=== PATIENT | male | born 1995 | race African-American/Black ===

== ENCOUNTER 2016-10-03 10:51 | Emergency (ER) | payer SELFPAY ==
[~2016-10-03] VITALS: Ht 172.7 cm; Wt 70.0 kg
[2016-10-03 10:52] VITALS: BP 125/89; PULSE 72; RESP 20; TEMP 97.8; O2SAT 99
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
[2016-10-03] MEDS ORDERED: CEPH-460 PO (12:06)
[2016-10-03] MEDS ORDERED: MUPI2%T TOPICAL (12:06)
[2016-10-03] MEDS ORDERED: DICL75TA PO (12:10)
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
== END 2016-10-03 12:43 | disposition home or self-care (01) ==
LOC: NEPK 10:51
DX: N48.5 Ulcer of penis (principal); B95.61 Methicillin susceptible Staphylococcus aureus infection as the cause of diseases classified elsewhere; F17.210 Nicotine dependence, cigarettes, uncomplicated; F12.90 Cannabis use, unspecified, uncomplicated
CPT/HCPCS: 86403; 87070; 87186; 99284

== ENCOUNTER 2016-11-28 16:38 | Emergency (ER) | payer OTHER ==
[~2016-11-28] VITALS: Ht 172.7 cm; Wt 74.0 kg
[~2016-11-28 16:38] MED LIST: CEPH-460 PO; DICL75TA PO; MUPI2%T TOPICAL
[2016-11-28 16:40] VITALS: BP 122/67; PULSE 84; RESP 20; TEMP 97.3; O2SAT 100
[2016-11-28] MEDS ORDERED: SODIUM CHLOR 0.9% 1000 ML INJ 1,000 ML IV SCH (17:01)
--- NOTE | 2016-11-28 17:04 | PD ---
HPI Chief Complaint: GI Complaint Time Seen by Provider: 16:58 Travel History International Travel<30 days: No Contact w/Intl Traveler<30days: No Traveled to known affect area: No History of Present Illness HPI 21-year-old male here for evaluation of feeling weak, nauseous, and dehydrated after drinking alcohol throughout the night last night. The patient reports drinking beer and liquor until around 6 AM. He has had a few episodes of vomiting. No diarrhea. He denies abdominal pain. Denies illicit drug use. [facility] Past Medical History Medical History: Denies Significant Hx Diminished Hearing: No GERD: Yes Immunizations Current: Yes Past Surgical History Surgical History: No Previous Surgery Social History Alcohol Use: Yes (6 PPD PLUS) Tobacco Use: Yes (1/2 PPD) Substance Use: Yes (marijuana per patient) Allergies-Medications (Allergen,Severity, Reaction): Coded Allergies: No Known Allergies (Verified , 11/28/16) Reported Meds & Prescriptions Reported Meds & Active Scripts Active Review of Systems Except as stated in HPI: all other systems reviewed are Neg Physical Exam Narrative GENERAL: Well-developed, well-nourished, awake, alert, comfortable, no apparent distress. SKIN: Focused skin assessment warm/dry. No rash. HEAD: Atraumatic. Normocephalic. EYES: Pupils equal and round. No scleral icterus. No injection or drainage. ENT: Mucous membranes pink and dry. NECK: Trachea midline. No JVD. CARDIOVASCULAR: Regular rate and rhythm. RESPIRATORY: No accessory muscle use. Clear to auscultation. Breath sounds equal bilaterally. GASTROINTESTINAL: Abdomen soft, non-tender, nondistended. MUSCULOSKELETAL: No obvious deformities. No clubbing. No cyanosis. No edema. NEUROLOGICAL: Awake and alert. No obvious cranial nerve deficits. Motor grossly within normal limits. Normal speech. PSYCHIATRIC: Appropriate mood and affect; insight and judgment normal. Data Data Last Documented VS Vital Signs Date Time Temp Pulse Resp B/P Pulse Ox O2 Delivery O2 Flow Rate FiO2 11/28/16 17:30 97 Room Air 11/28/16 16:40 97.3 84 20 122/67 Orders Complete Blood Count With Diff (11/28/16 17:01) Comprehensive Metabolic Panel (11/28/16 17:01) Iv Access Insert/Monitor (11/28/16 17:01) Ecg Monitoring (11/28/16 17:01) Oximetry (11/28/16 17:01) Ondansetron Inj (Zofran Inj) (11/28/16 17:15) Sodium Chlor 0.9% 1000 Ml Inj (Ns 1000 M (11/28/16 17:01) Sodium Chloride 0.9% Flush (Ns Flush) (11/28/16 17:15) Sodium Chlor 0.9% 1000 Ml Inj (Ns 1000 M (11/28/16 17:15) Metoclopramide Inj (Reglan Inj) (11/28/16 17:45) Blood Glucose (11/28/16 18:17) Labs Laboratory Tests Test 11/28/16 17:25 White Blood Count 11.3 TH/MM3 Red Blood Count 4.57 MIL/MM3 Hemoglobin 14.6 GM/DL Hematocrit 43.7 % Mean Corpuscular Volume 95.7 FL Mean Corpuscular Hemoglobin 32.0 PG Mean Corpuscular Hemoglobin 33.5 % Concent Red Cell Distribution Width 13.3 % Platelet Count 202 TH/MM3 Mean Platelet Volume 9.2 FL Neutrophils (%) (Auto) 80.0 % Lymphocytes (%) (Auto) 13.8 % Monocytes (%) (Auto) 5.0 % Eosinophils (%) (Auto) 0.6 % Basophils (%) (Auto) 0.6 % Neutrophils # (Auto) 9.1 TH/MM3 Lymphocytes # (Auto) 1.6 TH/MM3 Monocytes # (Auto) 0.6 TH/MM3 Eosinophils # (Auto) 0.1 TH/MM3 Basophils # (Auto) 0.1 TH/MM3 CBC Comment DIFF FINAL Differential Comment Sodium Level 140 MEQ/L Potassium Level 3.6 MEQ/L Chloride Level 107 MEQ/L Carbon Dioxide Level 21.2 MEQ/L Anion Gap 12 MEQ/L Blood Urea Nitrogen 12 MG/DL Creatinine 0.95 MG/DL Estimat Glomerular Filtration 119 ML/MIN Rate Random Glucose 52 MG/DL Calcium Level 8.8 MG/DL Total Bilirubin 0.5 MG/DL Aspartate Amino Transf 33 U/L (AST/SGOT) Alanine Aminotransferase 18 U/L (ALT/SGPT) Alkaline Phosphatase 49 U/L Total Protein 7.8 GM/DL Albumin 4.2 GM/DL [facility] Medical Decision Making Medical Screen Exam Complete: Yes Emergency Medical Condition: Yes Medical Record Reviewed: Yes Differential Diagnosis Dehydration, hangover, metabolic abnormality Narrative Course Vital signs reviewed. CBC shows WBC 11.3, hemoglobin 14.6, hematocrit 43.7, platelets 202. CMP is remarkable for random glucose 52, otherwise unremarkable. Patient was given 2 L normal saline IV, IV antiemetics, and when he was feeling better he was given juice and crackers. Repeat BGL is 93. She reports that he is feeling much improved. He is stable for discharge home with outpatient follow-up with a primary care physician this week. He was informed on when to return to the emergency department. He verbalizes understanding and agreement with plan. Diagnosis Primary Impression: Nausea and vomiting Qualified Code: R11.2 - Non-intractable vomiting with nausea, unspecified vomiting type Additional Impression: Hypoglycemia Referrals: Primary Care Physician 3 days Scripts Ondansetron Odt (Zofran Odt)4 Mg Tab4 Mg SL Q8HR PRN (Nausea/Vomiting) #20 TAB Ref 0 Prov:Joe Zelaya MD 11/28/16 Disposition: 01 DISCHARGE HOME Condition: Stable Joe Zelaya MD Nov 28, 2016 17:04
[2016-11-28] MEDS ORDERED: SODIUM CHLORIDE 0.9% FLUSH 10 ML FLUSH IV FLUSH PRN (17:15)
[2016-11-28] MEDS ORDERED: ONDANSETRON HCL 4 MG/2 ML VIAL IVP ONE (17:15)
[2016-11-28] MEDS ORDERED: SODIUM CHLOR 0.9% 1000 ML INJ 1,000 ML IV ONE (17:15)
[2016-11-28 17:30] VITALS: O2SAT 97
[2016-11-28 17:40] LABS: AUTOMATED NEUTROPHIL # 9.1 TH/MM3 (1.8-7.7); BASOPHIL # 0.1 TH/MM3 (0-0.2); BASOPHIL % 0.6 % (0.0-2.0); EOSINOPHIL # 0.1 TH/MM3 (0-0.4); EOSINOPHIL % 0.6 % (0.0-4.0); HEMATOCRIT 43.7 % (39.0-51.0); HEMO FLAGS DIFF FINAL; LYMPH % 13.8 % (9.0-44.0); LYMPHOCYTE # 1.6 TH/MM3 (1.0-4.8); MEAN CELL VOLUME 95.7 FL (80.0-100.0); MEAN CORPUSCULAR HGB CONC 33.5 % (32.0-36.0); PLATELET COUNT 202 TH/MM3 (150-450); RED BLOOD COUNT 4.57 MIL/MM3 (4.50-5.90); RED CELL DISTRIBUTION WIDTH 13.3 % (11.6-17.2); WHITE BLOOD COUNT 11.3 TH/MM3 (4.0-11.0)
[2016-11-28] MEDS ORDERED: METOCLOPRAMIDE HCL 10 MG/2 ML VIAL IV PUSH ONE (17:45)
[2016-11-28 17:55] LABS: ALT (GPT) 18 U/L (12-78); ANION GAP 12 MEQ/L (5-15); AST (GOT) 33 U/L (15-37); BICARBONATE 21.2 MEQ/L (21.0-32.0); BLOOD UREA NITROGEN 12 MG/DL (7-18); CHLORIDE 107 MEQ/L (98-107); GLOMERULAR FILTRATION RATE 119 ML/MIN (>89); POTASSIUM 3.6 MEQ/L (3.5-5.1); SODIUM (NA) 140 MEQ/L (136-145)
[2016-11-28 17:57] LABS: ALKALINE PHOSPHATASE 49 U/L (45-117); TOTAL BILIRUBIN ADULT 0.5 MG/DL (0.2-1.0)
[2016-11-28] MEDS ORDERED: ZOFR4TAB3 SL (18:39)
== END 2016-11-28 18:47 | disposition home or self-care (01) ==
LOC: NEPD 16:38
DX: R11.2 Nausea with vomiting, unspecified (principal); E16.2 Hypoglycemia, unspecified; F17.200 Nicotine dependence, unspecified, uncomplicated
CPT/HCPCS: 80053; 85025; 96361; 96374; 96375; 99284; J2405; J2765; J7030

== ENCOUNTER 2017-02-19 04:09 | Emergency (ER) | payer OTHER ==
[~2017-02-19] VITALS: Ht 172.7 cm; Wt 74.0 kg
[~2017-02-19 04:09] MED LIST changes: -CEPH-460 PO; -DICL75TA PO; -MUPI2%T TOPICAL; +ZOFR4TAB3 SL
[2017-02-19 04:10] VITALS: BP 138/86; PULSE 120; RESP 14; TEMP 98; O2SAT 97
[2017-02-19] MEDS ORDERED: IBUPROFEN 800 MG TAB PO ONE (04:45)
--- NOTE | 2017-02-19 05:04 | RADRPT ---
EXAM DATE/TIME: 02/19/2017 04:38 [place] COMPARISON: No previous studies available for comparison. INDICATIONS : Twisted knee and fell tonight. Pain when weight bearing. MEDICAL HISTORY : None. SURGICAL HISTORY : None. ENCOUNTER: Initial ACUITY: 1 day PAIN SCORE: 8/10 LOCATION: Left Knee FINDINGS: Four view examination of the left knee demonstrates no evidence of fracture or dislocation. Bony min eralization is normal. The articular surfaces are intact. There is mild fullness in the suprapatella bursa region. CONCLUSION: 1. No acute fracture or malalignment. 2. Small joint effusion. Joon Martel MD on February 19, 2017 at 5:02 Board Certified Radiologist. This report was verified electronically.
[2017-02-19] MEDS ORDERED: IBUP800T23 PO (05:27)
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
== END 2017-02-19 05:42 | disposition home or self-care (01) ==
LOC: NEPD 04:09
DX: M25.462 Effusion, left knee (principal); Z72.0 Tobacco use; Z87.19 Personal history of other diseases of the digestive system; W50.0XXA Accidental hit or strike by another person, initial encounter
CPT/HCPCS: 73564; 99283